=== PATIENT | female | born 1985 | race Caucasian/White ===

== ENCOUNTER 2020-05-23 19:43 | Emergency (ER) | payer OTHER, SELFPAY ==
[2020-05-23 19:58] VITALS: BP 123/75; PULSE 88; RESP 14; TEMP 37.4; O2SAT 99; BMI 26.6
--- NOTE | 2020-05-23 19:59 | DI.RAD.S_ITS ---
PROCEDURE: XR SHOULDER RT MIN 2V INDICATIONS: pain with range of motion and palpation TECHNIQUE: 2 views of the shoulder were acquired. COMPARISON: None. FINDINGS: Bones: No fractures or dislocations. No suspicious bony lesions. Visualized ribs appear intact. Soft tissues: No suspicious soft tissue calcifications. IMPRESSION: No acute radiographic findings. These findings were discussed with the patient by the radiologist at the time of the exam. Dictated by: Traci Chavez M.D. on 05/23/2020 at 20:15 Approved by: Traci Chavez M.D. on 05/23/2020 at 20:17
--- NOTE | 2020-05-23 20:07 | ED_ITS ---
HPI - Extremity Injury (Upper) General Chief Complaint: Extremity Injury, Upper Stated Complaint: RIGHT ARM INJURY Time Seen by Provider: 05/23/20 19:45 Source: patient Mode of arrival: Ambulatory Limitations: no limitations History of Present Illness HPI narrative: 35F daily smoker history of right shoulder injury presents with a chief complaint few days of right shoulder pain that seems to have been exacerbated by overuse few days ago. She denies any direct trauma. She denies any numbness, tingling or weakness. She does complain of worsening pain with range of motion largely around her lateral shoulder scapula. complaint: injury to: right and shoulder Onset (ago): day(s) Other injuries: none Handedness: right Place: home Severity: moderate Relieving factors: immobilization and rest Exacerbating factors: movement of extremity Context: injury Associated symptoms: denies other symptoms Treatments prior to arrival: NSAIDS Related Data Allergies Allergy/AdvReac Type Severity Reaction Status Date / Time No Known Drug Allergies Allergy Verified 05/23/20 20:04 Review of Systems Constitutional Constitutional: Denies chills, Denies fatigue, Denies fever(s), Denies frequent falls, Denies lethargy and Denies weakness Eyes Eyes: Denies change in vision, Denies eye discharge, Denies irritation and Denies loss of vision ENT Ears, Nose, Mouth, and Throat: Denies change in voice, Denies dizziness, Denies neck pain, Denies sore throat and Denies throat swelling Cardiovascular Cardiovascular: Denies chest pain, Denies irregular heart rhythm, Denies lightheadedness, Denies palpitations, Denies dyspnea, Denies dyspnea on exertion and Denies orthopnea Respiratory Respiratory: Denies cough, Denies dyspnea, Denies dyspnea on exertion and Denies wheezing Gastrointestinal Gastrointestinal: Denies abdominal pain, Denies change in bowel habits, Denies diarrhea, Denies nausea and Denies vomiting Musculoskeletal Musculoskeletal: Reports arthralgias, Reports limited range of motion, Denies neck pain and Denies numbness Integumentary/Breasts Skin/Breast: Denies pruritus, Denies erythema, Denies rash and Denies wounds Neurologic Neurologic: Denies behavioral changes, Denies confusion, Denies dizziness, Denies frequent falls, Denies loss of vision, Denies numbness and Denies weakness Psychiatric Psychiatric: Denies anxiety, Denies behavioral changes, Denies confusion, Denies depression, Denies homicidal ideation and Denies suicidal ideation Endocrine Endocrine: Denies fatigue, Denies flushing and Denies palpitations Hematologic/Lymphatic Hematologic/Lymphatic: Denies easy bruising Allergic/Immunologic Allergic/Immunologic: Denies urticaria, Denies throat swelling and Denies wheezing Patient History Social History Smoking Status: Current every day smoker Smoking Status: Current every day smoker alcohol intake frequency: a few times a week Substance Use Type: does not use Exam Narrative Exam Narrative: GENERAL: [35] year old patient appears stated age. Well- nourished, well-developed patient, in mild distress. HEAD: Atraumatic. Normocephalic. EYES: Pupils equal round and reactive. Extraocular motions intact. No scleral icterus. No injection or drainage. ENT: Nose without bleeding, purulent drainage. Throat without erythema, tonsillar hypertrophy or exudate. Airway patent. NECK: Trachea midline. Non tender CARDIOVASCULAR: Regular rate and rhythm without murmurs, gallops, or rubs. RESPIRATORY: Clear to auscultation. Breath sounds equal bilaterally. No wheezes, rales, or rhonchi. GASTROINTESTINAL: Abdomen soft, non-tender, nondistended. EXTREMITIES: Full but painful range of motion at right shoulder. Tenderness to palpation along multiple components of rotator cuff. Worsening pain with much of her range of motion. Full strength and no numbness, tingling or weakness.. BACK: Nontender without deformity or crepitance. No flank tenderness. NEURO: AOx3. SKIN: No rash or erythema of visible areas Initial Vital Signs Initial Vital Signs: Vital Signs Temperature 99.3 F 05/23/20 19:58 Pulse Rate 88 05/23/20 19:58 Respiratory Rate 14 05/23/20 19:58 Blood Pressure 123/75 05/23/20 19:58 Pulse Oximetry 99 05/23/20 19:58 Procedures Orthopedic Splinting/Casting Injury #1: Side: right Upper Extremity Injury Location: shoulder Upper Extremity Immobilizer: sling/shoulder immobilizer Post splinting neuro exam: intact Post splinting vascular exam: intact Placed by: Nursing Course Orders Ordered: ED Orders 05/23/20 19:59 XR shoulder RT min 2V Stat Discontinued Medications Cyclobenzaprine HCl (Flexeril 10 Mg Prepack) 1 bottle MIS SEEINS ONE Stop: 05/23/20 20:13 Last Admin: 05/23/20 20:34 Dose: 1 bottle Documented by: HEATHER Vital Signs Vital signs: Vital Signs - 8 hr 05/23/20 19:58 Temperature 99.3 F Pulse Rate 88 Respiratory Rate 14 Blood Pressure 123/75 Pulse Oximetry 99 MDM - Extremity Injury (Upper) Imaging Data Extremity x-ray #1: Attestation: I personally reviewed and interpreted this imaging study as follows: My Impression: NAP Radiologist's Impression: [address] [address] XRay Report Signed Patient: Jud SargentMR#: [id number] : 1985Acct:[id number] Age/Sex: 35 / FDate of Service: 05/23/20 Loc: ED Accession Number: [id number] Procedure: XR shoulder RT min 2V Ordering Provider: Fantasma Okeefe D.O. PROCEDURE: XR SHOULDER RT MIN 2V INDICATIONS: pain with range of motion and palpation TECHNIQUE: 2 views of the shoulder were acquired. COMPARISON: None. FINDINGS: Bones: No fractures or dislocations. No suspicious bony lesions. Visualized ribs appear intact. Soft tissues: No suspicious soft tissue calcifications. IMPRESSION: No acute radiographic findings. These findings were discussed with the patient by the radiologist at the time of the exam. Dictated by: Traci Chavez M.D. on 05/23/2020 at 20:15 Approved by: Traci Chavez M.D. on 05/23/2020 at 20:17 Discharge Plan Departure Patient Disposition: Home Clinical Impression: Right shoulder strain Qualifiers: Encounter type: initial encounter Qualified Code(s): S46.911A - Strain of unspecified muscle, fascia and tendon at shoulder and upper arm level, right arm, initial encounter Discharge Date/Time: 05/23/20 20:41 Instructions: DI for Shoulder Sprain Activity Restrictions/Additional Instructions: *You have been diagnosed with [acute right shoulder strain] *What to do: *Take medications as directed *Follow up with your primary care provider in 2-3 days, call for an appointment. Let them know you were seen in the Emergency Department and that we ask that you be seen in follow up *Return to ER if you should have any new, worsening or concerning symptoms
[2020-05-23] MEDS: CYCLOBENZAPRINE 10 MG PREPACK 1 BOTTLE MISC (20:34)
== END 2020-05-23 20:41 | disposition home or self-care (01) ==
PROVIDERS: Emergency Provider Emergency Medicine
DX: S46.911A Strain of unspecified muscle, fascia and tendon at shoulder and upper arm level, right arm, initial encounter (principal)
CPT/HCPCS: 73030; 99283